=== PATIENT | male | born 1970 | race Two or more races ===

== ENCOUNTER 2020-02-29 21:31 | Emergency (ER) | payer BC ==
[~2020-02-29] VITALS: Ht 182.9 cm; Wt 79.4 kg
--- NOTE | 2020-02-29 21:38 | NUR ---
BIBSELF C/O LAC R FIRST FINGER S/P DOG BITE. PLACED IN BED 9, ON MONITOR AND PULSE OX. AT BEDSIDE FOR EVAL.
--- NOTE | 2020-02-29 21:41 | NUR ---
EMT AT BEDSIDE FOR WOUND CARE
[2020-02-29] MEDS ORDERED: LIDOCAINE 2% 20 ML MDV ONE (21:56)
[2020-02-29] MEDS ORDERED: HYDROCODONE/APAP 5/325MG 1 EACH TABLET ONE (21:56)
[2020-02-29] MEDS ORDERED: TDAP [DIPH/PERTUSSIS/TET] 0.5 ML VIAL IM ONE ×2 (21:57→22:00)
[2020-02-29] MEDS ORDERED: HYDROCODONE/APAP 5/325MG 1 EACH TABLET PO ONE (22:00)
[2020-02-29] MEDS ORDERED: LIDOCAINE 2% 20 ML MDV TP ONE (22:00)
--- NOTE | 2020-02-29 22:01 | NUR ---
Note xiao in ED - 02/29/20 at 2216 by EVICTOR BIBSELF C/O LAC R FIRST FINGER S/P DOG BITE. PLACED IN BED 9, ON MONITOR AND PULSE OX. MD AT BEDSIDE FOR EVAL.
[2020-02-29] MEDS ORDERED: LIDOCAINE 1% INJ 50 ML MDV IJ ONE (22:28)
--- NOTE | 2020-02-29 22:29 | NUR ---
PA AT BEDSIDE FOR SUTURES
[2020-02-29] MEDS ORDERED: CEFAZOLIN 1 GM VIAL IM ONE (23:00)
--- NOTE | 2020-02-29 23:06 | NUR ---
EMT AT BEDSIDE FOR WOUND CARE.
[2020-02-29] MEDS ORDERED: METRONIDAZOLE 500 MG TABLET ONE (23:21)
[2020-02-29] MEDS ORDERED: CEFTRIAXONE 1 G VIAL ONE (23:21)
[2020-02-29] MEDS ORDERED: LIDOCAINE /MPF 1% VIAL 5 ML VIAL ONE (23:21)
[2020-02-29] MEDS ORDERED: METRONIDAZOLE 500 MG TABLET PO ONE (23:30)
[2020-02-29] MEDS ORDERED: CEFTRIAXONE 1 G VIAL IM ONE (23:30)
--- NOTE | 2020-02-29 23:31 | NUR ---
Patient discharged to home in stable condition. Written and verbal after care instructions given. Patient verbalizes understanding of instruction and RX. Pt ambulated with steady gait. VSS.
[2020-02-29 23:33] VITALS: BP 128/79
== END 2020-02-29 23:34 | disposition home or self-care (01) ==
LOC: ER 21:31
DX: S62.630A Displaced fracture of distal phalanx of right index finger, initial encounter for closed fracture (principal); S60.412A Abrasion of right middle finger, initial encounter; Z88.0 Allergy status to penicillin; W54.0XXA Bitten by dog, initial encounter; Y93.89 Activity, other specified; Y92.89 Other specified places as the place of occurrence of the external cause; Y99.8 Other external cause status
CPT/HCPCS: 12002; 73140; 90471; 90715; 96372; 99284; A6403; J0690; J0696; J3490 ×3